=== PATIENT | female | born 1995 | race Asian ===

== ENCOUNTER 2017-10-04 01:22 | Emergency (ER) | payer OTHER ==
[~2017-10-04] VITALS: Ht 160 cm; Wt 54.6 kg
[2017-10-04 01:28] VITALS: TEMP 36.7; O2SAT 99; Ht 160 cm; Wt 54.6 kg
--- NOTE | 2017-10-04 01:34 | EMERGENCY ROOM VISIT NOTE ---
History Report prepared by Estellaibcheyanne: William Abad Under the Supervision of: Dr. Zoe Love D.O. First contact with patient: 01:24 Chief Complaint: ALCOHOL OVERDOSE Stated Complaint: ALCOHOL/VOMITING History of Present Illness HPI is limited due to altered mental state secondary to alcohol intoxication. The patient is a 21 year old female who presents to the Emergency Room via EMS due to a recent alcohol overdose. EMS states the patient was found in the 3rd floor bathroom of [facility] by her RA. They state they went in and woke the patient where she then began to vomit for 15 minutes straight. Patient states she went to an apartment libertarian [employer] and had "1 beer". She adds she has had food poisoning for the past 5 days. She states vomited earlier in the day due to the food poisoning. 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 Source of History: patient, EMS History Limited By: AMS (Alcohol intoxication) Onset: Recent Position: head Associated Symptoms: + vomiting Review of Systems ROS is limited due to altered mental state secondary to alcohol intoxication. Past Medical & Surgical Past medical & surgical history is limited due to altered mental state secondary to alcohol intoxication. Family History Family history is limited due to altered mental state secondary to alcohol intoxication. Social History Alcohol Use: occasionally Occupation Status: [employer] student Current/Historical Medications No Active Prescriptions or Reported Meds Allergies Coded Allergies: No Known Allergies (Unverified , 10/04/17) Physical Exam Vital Signs Date Time Temp Pulse Resp B/P (MAP) Pulse Ox O2 Delivery O2 Flow Rate FiO2 10/04/17 04:31 87 18 98/53 97 Room Air 10/04/17 04:14 84 16 92/51 96 Room Air 10/04/17 03:09 83 16 100/47 97 Room Air 10/04/17 02:01 111/80 10/04/17 01:52 89 17 100 10/04/17 01:37 95 18 98 Room Air 10/04/17 01:31 128/89 10/04/17 01:28 99 Room Air 10/04/17 01:28 36.7 93 12 115/73 97 Room Air 10/04/17 01:26 91 Physical Exam General: Patient smells of alcohol. HEENT: Head - normocephalic and atraumatic Pupils are equal, round, 6mm, and reactive to light. Extraocular eye muscles are intact, and sclera are anicteric. Nose - moist nasal mucosa without discharge. Mouth - moist buccal mucosa. Oropharynx is nonerythematous and there is no tonsillar exudate or edema noted. Neck: Supple; no JVD, nuchal rigidity, cervical lymphadenopathy. Heart: Tachycardic rate and rhythm. There is a normal S1 and S2 with no murmurs , clicks, or gallops appreciated. Lungs: Clear to auscultation bilaterally with no wheezes, rales, or rhonchi. Abdomen: Soft, completely nontender, nondistended, with good bowel sounds. There are no palpable pulsatile masses or hepatosplenomegaly. There is no guarding, rigidity, or rebound noted. Extremities: No evidence of cyanosis, clubbing, or edema. There are easily palpable peripheral pulses. Skin: Pale, warm, and dry with good turgor and no rashes. Medical Decision & Procedures Laboratory Results 10/04/17 01:36 Red Blood Count 4.10, Mean Corpuscular Volume 91.2, Mean Corpuscular Hemoglobin 31.0, Mean Corpuscular Hemoglobin Concent 34.0, Mean Platelet Volume 9.6, Neutrophils (%) (Auto) 61.3, Lymphocytes (%) (Auto) 26.0, Monocytes (%) (Auto) 11.0, Eosinophils (%) (Auto) 1.2, Basophils (%) (Auto) 0.3, Neutrophils # (Auto ) 7.38, Lymphocytes # (Auto) 3.14, Monocytes # (Auto) 1.33, Eosinophils # (Auto ) 0.15, Basophils # (Auto) 0.04 10/04/17 01:36 Test 10/04/17 01:36 White Blood Count 12.06 K/uL (4.8-10.8) Red Blood Count 4.10 M/uL (4.2-5.4) Hemoglobin 12.7 g/dL (12.0-16.0) Hematocrit 37.4 % (37-47) Mean Corpuscular Volume 91.2 fL (80-100) Mean Corpuscular Hemoglobin 31.0 pg (25-34) Mean Corpuscular Hemoglobin Concent 34.0 g/dl (32-36) Platelet Count 194 K/uL (130-400) Mean Platelet Volume 9.6 fL (7.4-10.4) Neutrophils (%) (Auto) 61.3 % Lymphocytes (%) (Auto) 26.0 % Monocytes (%) (Auto) 11.0 % Eosinophils (%) (Auto) 1.2 % Basophils (%) (Auto) 0.3 % Neutrophils # (Auto) 7.38 K/uL (1.4-6.5) Lymphocytes # (Auto) 3.14 K/uL (1.2-3.4) Monocytes # (Auto) 1.33 K/uL (0.11-0.59) Eosinophils # (Auto) 0.15 K/uL (0-0.5) Basophils # (Auto) 0.04 K/uL (0-0.2) RDW Standard Deviation 40.1 fL (36.4-46.3) RDW Coefficient of Variation 11.9 % (11.5-14.5) Immature Granulocyte % (Auto) 0.2 % Immature Granulocyte # (Auto) 0.02 K/uL (0.00-0.02) Anion Gap 13.0 mmol/L (3-11) Est Creatinine Clear Calc Drug Dose 113.4 ml/min Estimated GFR () 148.4 Estimated GFR (Non- 128.1 BUN/Creatinine Ratio 19.6 (10-20) Calcium Level 8.4 mg/dl (8.5-10.1) Ethyl Alcohol mg/dL 185.0 mg/dl (0-3) Laboratory results per my review. Medications Administered Medications (Trade) Dose Ordered Sig/Anayeli Route Start Time Stop Time Status Last Admin Dose Admin Sodium Chloride 1,000 ml @ 999 mls/hr Q1H1M STAT IV 10/04/17 01:40 10/04/17 02:40 DC 10/04/17 01:45 999 MLS/HR Ondansetron HCl (Zofran Inj) 4 mg NOW STAT IV 10/04/17 01:47 10/04/17 01:48 DC 10/04/17 02:02 4 MG Potassium Chloride (Klor-Con M10) 20 meq STK-MED ONCE .ROUTE 10/04/17 04:33 10/04/17 04:34 DC 10/04/17 04:36 20 MEQ Procedure Sodium Chloride 1000 ml @ 999 mls/hr IV, Zofran Inj 4mg IV, and Potassium Chloride 20meq PO. ED Course 0122: Past medical records reviewed. The patient was evaluated in room A9A. A complete history and physical exam was performed. An IV lock was initiated and labs are drawn as above 0140: Sodium Chloride 1000 ml @ 999 mls/hr IV. 0147: Zofran Inj 4mg IV 0220: Potassium Chloride 20meq PO 0318: I reevaluated the patient. Friend is at bed-side and I updated them on the patient's findings. Patient is asleep with stable vitals. 0436: Upon reevaluation, the patient will be discharged with her friend. I talked to the patient about the hazards of excessive alcohol consumption and encouraged her to consume foods high in potassium. I discussed findings and results with them. They verbalized agreement of the treatment plan. She was discharged home. Medical Decision The patient is a 21 year old female who presents to the ED due to a recent alcohol overdose. Differential diagnosis includes alcohol overdose, drug intoxication, hypoglycemia, head injury, food-borne illness, and dehydration. Lab results show WBC = 12.0, stable H&H, potassium = 3.1, normal renal function and glucose, and alcohol = 185. The patient was brought to the emergency department after consuming too much alcohol. There were no obvious signs of trauma or complaints of pain. They were observed closely throughout the night and remained stable while here in the ER. The patient was allowed time to sober up prior to discharge. I had a conversation with the patient about the hazards of such excessive alcohol use. Medication Reconcilliation Current Medication List: was personally reviewed by me Blood Pressure Screening Patient's blood pressure: Normal blood pressure Blood pressure disposition: Did not require urgent referral Impression Primary Impression: Alcohol intoxication Additional Impression: Hypokalemia Scribe Attestation The scribe's documentation has been prepared under my direction and personally reviewed by me in its entirety. I confirm that the note above accurately reflects all work, treatment, procedures, and medical decision making performed by me. Departure Information Dispostion Home / Self-Care Prescriptions No Active Prescriptions or Reported Meds Forms HOME CARE DOCUMENTATION FORM, IMPORTANT VISIT INFORMATION Patient Instructions ED Overdose Alcohol, Hypokalemia [facility] [employer] Students and Alcohol Related Visits, My [facility] Additional Instructions Avoid such excessive alcohol use in the future. Tylenol 650 mg every 6 hours for headache. Drink plenty of fluids and take a bland diet today. Return to the emergency department for worsening symptoms or any medical concerns. Take foods high in potassium Problem Qualifiers Primary Impression: Alcohol intoxication Complication of substance-induced condition: uncomplicated Qualified Codes: F10.920 - Alcohol use, unspecified with intoxication, uncomplicated
[2017-10-04] MEDS ORDERED: SODIUM CHLORIDE 0.9% 1000ML 1,000 ML IV STA (01:40)
[2017-10-04] MEDS ORDERED: ONDANSETRON INJ 2 MG/ML 2 ML VIAL IV STA (01:47)
[2017-10-04 02:10] LABS: BASO % 0.3 %; BASO ABS # 0.04 K/uL (0-0.2); EOS % 1.2 %; EOS ABS # 0.15 K/uL (0-0.5); HEMATOCRIT 37.4 % (37-47); HEMOGLOBIN 12.7 g/dL (12.0-16.0); IG# 0.02 K/uL (0.00-0.02); LYMPH ABS # 3.14 K/uL (1.2-3.4); MEAN CELL VOLUME 91.2 fL (80-100); MEAN PLATELET VOLUME 9.6 fL (7.4-10.4); MONO ABS # 1.33 K/uL (0.11-0.59); NEUT % 61.3 %; NEUT ABS # 7.38 K/uL (1.4-6.5); PLATELET COUNT 194 K/uL (130-400); RED CELL DISTRIBUTION WIDTH CV 11.9 % (11.5-14.5); RED CELL DISTRIBUTION WIDTH SD 40.1 fL (36.4-46.3); WHITE BLOOD COUNT 12.06 K/uL (4.8-10.8)
[2017-10-04 02:12] LABS: CALCIUM 8.4 mg/dl (8.5-10.1); CREATININE 0.66 mg/dl (0.60-1.20); POTASSIUM 3.1 mmol/L (3.5-5.1)
[2017-10-04] MEDS ORDERED: POTASSIUM CHLORIDE 20 MEQ TABCR PO STA (02:20)
[2017-10-04 04:31] VITALS: BP 98/53; PULSE 87; O2SAT 97
[2017-10-04] MEDS ORDERED: POTASSIUM CHLORIDE 10 MEQ TABCR ONE (04:33)
== END 2017-10-04 04:40 | disposition home or self-care (01) ==
LOC: EDBD 01:22 → C.EDA 01:24
DX: T51.0X1A Toxic effect of ethanol, accidental (unintentional), initial encounter (principal); Y90.6 Blood alcohol level of 120-199 mg/100 ml; E87.6 Hypokalemia